=== PATIENT | female | born 1950 | race Caucasian/White ===

== ENCOUNTER 2016-10-28 19:53 | Emergency (ER) | payer OTHER ==
--- NOTE | ~2016-10-28 | ER ---
PATIENT'S NAME: JAREK CHINCHILLA [facility] AGE: 65 Y [address] ROOM: [place] [address] LOCATION: [facility] ADMIT DATE: 10/28/2016 ER/Outpatient Report DISCHARGE DATE: FAMILY PHYSICIAN: Physician, Unknown ATTENDING PHYSICIAN: Rashel Glynn Admission date and time documented on the medical record. I saw the patient at 2005 hours. CHIEF COMPLAINT: Hypoglycemic reaction and headache. HISTORY OF PRESENT ILLNESS: The patient is a 65-year-old female who was at [place] visiting her mother in the group home. The patient had an insulin reaction, became unresponsive. Her initial Accu-Chek was 40. She was given some honey and got her blood sugar up to 60. She was given 2 glucagon tablets and then 1 glucagon tablet in the emergency unit en route. Just prior to admission to the emergency room, her Accu-Chek was 161. On arrival, the patient was awake, responsive. Does not really remember what happened tonight. She has not had any recent colds, coughs, flus, fever, chills, or sweats. She has insulin- dependent diabetes and is on an insulin pump. We did stop her insulin on arrival here to the emergency department. The patient had no headache, eyes, ears, nose, throat, neck, or spine pain. No fall or trauma. Denied any lightheadedness or dizziness. Again, no recent coughs, colds, flus, fever, chills, or sweats. No chest pain or shortness of breath. No abdominal pain, nausea, vomiting, diarrhea, urinary frequency, urgency, or dysuria. No joint or muscle swelling, redness, or pain. No skin eruptions or rash. Does have insulin-dependent diabetes mellitus. No other endocrine problems. No neuro changes or psych issues. HOME MEDICATIONS: See attached medication list. ALLERGIES: SULFA AND LATEX. SOCIAL HISTORY: Nonsmoker and nondrinker. SIGNIFICANT PAST MEDICAL HISTORY: Insulin-dependent diabetes mellitus, on insulin pump and degenerative osteoarthritis. OPERATIONS: PATIENT'S NAME: JAREK CHINCHILLA [facility] AGE: 65 Y [address] ROOM: [place] [address] LOCATION: ED ADMIT DATE: 10/28/2016 ER/Outpatient Report DISCHARGE DATE: FAMILY PHYSICIAN: Physician, Unknown ATTENDING PHYSICIAN: Rashel Glynn None. REVIEW OF SYSTEMS: All systems reviewed by me are negative with exception of those discussed in the history of present illness. PHYSICAL EXAMINATION: VITAL SIGNS: Temperature 94.3, tympanic; pulse 67; respirations 16, blood pressure 139/65; O2 saturation on room air is 98%. HEENT: Head: Normocephalic. No abrasion, contusion, laceration, swelling of the scalp or face. Eyes: Extraocular muscles are intact. PERRL. Ears, Nose, Throat: Clear. Mucous membranes are moist. NECK: No nuchal rigidity. No findings of adenopathy. LUNGS: Clear. No rales, rhonchi, or wheezes. HEART: Regular. Pulses are palpable. ABDOMEN: Soft, nondistended, nontender. Good bowel tones. No organomegaly or abnormal masses are palpable. EXTREMITIES: No peripheral edema, cyanosis, or deformity. Moves all 4 extremities. NEURO: Cranial nerves intact. No lateralized sign. The patient is awake, cooperative. Motor and sensory intact. SKIN: Clear. No skin eruptions or rash. EKG: EKG showed sinus rhythm. No acute ST elevation, ischemic changes, or arrhythmia. Chest x-rays showed no acute infiltrate or changes. We will review x-ray with the radiologist. LABORATORY DATA: Urine showed 20-50 wbc's, 2-5 rbc's, 2-5 epithelial cells, many bacteria, positive nitrites. CMS was normal except for a slightly low sodium 133, elevated glucose 252, elevated creatinine 1.8, low GFR of 28. CPK was 90. [id number] cardiac enzymes were normal. Procalcitonin was less than 0.05. Lactate was 1.2. CRP was less than 0.29. White count was 7800, 88 segs, 7 lymphocytes, 4 monos, and 1 eos. Hemoglobin was 9.3, hematocrit 28.2, platelet count is 245,000. Pro time is 10.6 and INR 1.0. D-dimer was 1.48. Proceeded with a V/Q scan of the lungs, showed no evidence of pulmonary embolism. See dictated and transcribed radiology report. IMPRESSION: 1. Hypoglycemic reaction, etiology uncertain. The patient does have insulin- dependent diabetes mellitus on insulin pump. Responded well to glucagon. 2. Renal insufficiency secondary to diabetes. 3. Unresponsive episode secondary to hypoglycemia. 4. Urinary tract infection. PATIENT'S NAME: JAREK CHINCHILLA [facility] AGE: 65 Y [address] ROOM: [place], [place] [address] LOCATION: [facility] ADMIT DATE: 10/28/2016 ER/Outpatient Report DISCHARGE DATE: FAMILY PHYSICIAN: Physician, Unknown ATTENDING PHYSICIAN: Rashel Glynn 5. Degenerative osteoarthritis. PLAN: The patient was given IV normal saline fluids here in the emergency department. Discharged home. Observation. Activity as tolerated. Cipro 500 mg b.i.d. for a week. Continue present home medications and care. Fluids and diet as tolerated. Good hydration. Follow up with personal physician in 5-6 days or sooner if needed. Discussion ensued with the patient concerning my findings and recommendations, she understands. MD ALYSSA HENSON/modl /[id number] d: 10/29/16 0109 t: 10/29/16 0343, OUTPATIENT REPORT
[2016-10-28 21:03] LABS: BASOPHIL % 0.4 %; EOSINOPHIL # 0.1 K/uL (0.0-0.5); EOSINOPHIL % 0.9 %; HEMATOCRIT 28.2 % (33.0-46.0); HEMOGLOBIN 9.3 g/dL (10.0-15.0); IMMATURE GRANULOCYTE % 0.3 %; LYMPHOCYTE # 0.6 K/uL (0.8-4.0); LYMPHOCYTE % 7.3 %; MCH 29.1 pg (27.0-34.0); MCV 88.1 fl (83.0-98.0); MONOCYTE # 0.3 K/uL (0.0-1.0); MONOCYTE % 3.6 %; MPV 9.4 fl (9.4-12.4); NEUTROPHIL # (ANC) 6.8 K/uL (1.8-7.8); NEUTROPHIL % 87.5 %; NRBC % 0 /100WBC (0-0.00); PLATELET COUNT 245 K/uL (150-450); RDW-CV 12.7 % (11.9-14.6); WBC 7.8 K/uL (4.0-11.0)
[2016-10-28 21:12] LABS: PROTIME 10.6 SECONDS (9.6-11.1)
[2016-10-28 21:28] LABS: ALBUMIN 3.8 gm/dL (3.5-5.0); ALK PHOS 114 IU/L (33-138); ALT 20 IU/L (12-78); ANION GAP 16.1 (10.0-19.0); AST 18 IU/L (10-40); BLOOD UREA NITROGEN 24 mg/dL (6-24); CALCIUM 8.6 mg/dL (8.5-10.5); CHLORIDE 97 mMol/L (96-110); CO2 24 mMol/L (22-32); CPK 90 IU/L (21-215); CREATININE 1.8 mg/dL (0.5-1.1); ESTIMATED GFR (MDRD EQUATION) 28; POTASSIUM 4.1 mMol/L (3.7-5.1); SODIUM 133 mMol/L (135-145); TOTAL BILIRUBIN 0.3 mg/dL (0.0-1.5); TOTAL PROTEIN 7.5 g/dL (6.0-8.4)
[2016-10-28 23:12] LABS: BILIRUBIN URINE NEGATIVE (NEGATIVE); BLOOD URINE 10 /UL (NEGATIVE); COLOR URINE YELLOW (YELLOW); GLUCOSE URINE 250 mg/dL (NEGATIVE); KETONE URINE NEGATIVE (NEGATIVE); LEUKOCYTES URINE 500 /UL (NEGATIVE); NITRITE URINE POSITIVE (NEGATIVE); PROTEIN URINE 30 mg/dL (NEGATIVE); SPEC GRAVITY URINE 1.015 (1.003-1.035); TURBIDITY URINE 2+ (CLEAR); UROBILINOGEN URINE NORMAL (NORMAL)
[2016-10-28 23:22] LABS: BACTERIA URINE MANY (NEGATIVE); WBC URINE 20-50 #/HPF (NEGATIVE)
== END 2016-10-29 00:59 | disposition disaster alternative care site (69) ==
LOC: GMED 19:53
PROVIDERS: Emergency Medicine
DX: E11.649 Type 2 diabetes mellitus with hypoglycemia without coma (principal); N39.0 Urinary tract infection, site not specified; E11.21 Type 2 diabetes mellitus with diabetic nephropathy; N28.9 Disorder of kidney and ureter, unspecified; M19.90 Unspecified osteoarthritis, unspecified site; Z79.4 Long term (current) use of insulin; Z96.41 Presence of insulin pump (external) (internal); Z88.2 Allergy status to sulfonamides; Z91.040 Latex allergy status
CPT/HCPCS: A9539; A9540; J7030

== ENCOUNTER → 2016-10-28 | Outpatient (CLI) | payer OTHER | END | disposition disaster alternative care site (69) | LOC: GAMB 19:09 | DX: E10.649 Type 1 diabetes mellitus with hypoglycemia without coma (principal); R41.82 Altered mental status, unspecified; Z79.4 Long term (current) use of insulin ==